=== PATIENT | male | born 1950 | race Caucasian/White ===

== ENCOUNTER 2022-01-05 14:37 | Inpatient (IN) | payer OTHER ==
[~2022-01-05] VITALS: Ht 188 cm; Wt 65.8 kg
--- NOTE | 2022-01-05 14:40 | NUR ---
Pt brought by , A&Ox4, pt presents to ER with c/o chest tightness for few days, also c/o generalized weakness, skin pink and warm, cap refill <3, VSS, respirations even and unlabored, will cont to monitor.
[2022-01-05 14:56] VITALS: BP_SYST 119
--- NOTE | 2022-01-05 15:00 | NUR ---
Dr Heck evaluating patient in the triage room
[2022-01-05 15:54] LABS: BASOPHILS % (AUTO) 0.1 % (0.0-2.0); EOSINOPHILS % (AUTO) 0.6 % (0.0-4.0); HEMATOCRIT 34.8 % (36-54); HEMOGLOBIN 12.1 g/dL (14.0-18.0); MEAN CORPUSCULAR HEMOGLOBIN 31 pg (27-31); MEAN CORPUSCULAR HGB CONC 35 % (32-36); MEAN CORPUSCULAR VOLUME 89 fL (79.0-98.0); MONOCYTES # (AUTO) 0.5 K/uL (0.0-1.0); NEUTROPHILS # (AUTO) 4.2 K/uL (1.8-7.7); NEUTROPHILS % (AUTO) 72.3 % (40.0-70.0); PLATELET COUNT (AUTO) 184 K/uL (130-430); RED BLOOD CELL COUNT(AUTO) 3.93 MIL/uL (4.2-6.2); RED CELL DISTRIBUTION WIDTH 13.7 % (9.0-15.0); WHITE BLOOD COUNT (AUTO) 5.8 K/uL (4.8-10.8)
[2022-01-05 16:47] LABS: THYROID STIMULATING HORMONE 1.07 uIu/mL (0.36-3.74)
[2022-01-05 16:49] LABS: ALBUMIN 3.8 g/dL (3.4-4.8); ASPARTATE AMINOTRANSFERASE 20 U/L (10-37); CALCIUM 9.9 mg/dL (8.4-11.0); CREATININE 0.99 mg/dL (0.55-1.30); GLUCOSE 101 mg/dL (70-99); UREA NITROGEN, BLOOD 23 mg/dL (8-21)
[2022-01-05 17:11] LABS: ALANINE AMINOTRANSFERASE 6 U/L (12-78)
[2022-01-05 17:18] LABS: GFR AFRICAN AMERICAN 96 mL/min (>90)
--- NOTE | 2022-01-05 17:50 | NUR ---
Placed in room 06 . Placed on quality assurance monitor final, blood pressure machine and pulse oximeter. To gown for exam. Side rails up.
--- NOTE | 2022-01-05 17:55 | NUR ---
# 20 gauge angiocath placed to LAC. Use of asceptic technique. Opsite placed over site. Blood return noted. Blood for lab drawn from site. Flushed with 10 cc of normal saline. No evidence of infiltration noted. Patient tolerated well.
[2022-01-05] MEDS ORDERED: NACL 0.9% 1,000 ML IV ONE (18:00)
[2022-01-05 18:07] LABS: POTASSIUM 4.1 mmol/L (3.5-5.1)
[2022-01-05 18:08] LABS: ANION GAP 9 (5-15); CHLORIDE 103 mmol/L (98-107)
[2022-01-05 18:09] LABS: SODIUM SERUM 136 mmol/L (136-145)
--- NOTE | 2022-01-05 18:41 | NUR ---
COVID SWAB DONE AND SENT TO LAB
--- NOTE | 2022-01-05 18:53 | NUR ---
Admit bed requested Patient will be admitted to care of . Admitted to TELE unit. Diagnosis CAD, DIZZINESS Inpatient (Yes or No) YES Observation (Yes or No) NO Orientation concerns or request close to nursing station (Yes or No) NO Covid Status PENDING On vent or bipap NO Isolation requirements NO Needs a sitter NO From Home (Yes or if No enter name of facility) HOME Requires Dialysis (Yes or No) NO Med Rec Completed (Yes of No) YES
--- NOTE | 2022-01-05 19:58 | NUR ---
patient is at CT Addendum: 01/05/22 at 1958 by [email or web address] wrong note
[2022-01-05 20:10] LABS: BILIRUBIN,URINE NEGATIVE (NEGATIVE); BLOOD, URINE NEGATIVE (NEGATIVE); CLARITY/URINE CLEAR (CLEAR); COLOR,URINE YELLOW (YELLOW); GLUCOSE,URINE NEGATIVE (NEGATIVE); KETONES,URINE TRACE (NEGATIVE); LEUKOCYTE ESTERASE ,URINE NEGATIVE (NEGATIVE); NITRITE, URINE NEGATIVE (NEGATIVE); PROTEIN URINE NEGATIVE (NEGATIVE)
--- NOTE | 2022-01-05 20:30 | NUR ---
Patient transferred to TELE 110A. Report given to Florentino CORBETT
[2022-01-05 20:55] VITALS: BP_SYST 139
[2022-01-05] MEDS ORDERED: CARB1TAB10 PO (22:11)
[2022-01-05] MEDS ORDERED: CARB-15 PO (23:33)
[2022-01-05] MEDS: CARBIDOPA/LEVODOPA 25/250 MG TABLET PO SCH (23:51)
[2022-01-05] MEDS: TEMAZEPAM 7.5 MG CAPSULE PO PRN (23:51)
[2022-01-06 01:05] VITALS: BP_SYST 91
--- NOTE | 2022-01-06 01:15 | NUR ---
Patient education to leave heart monitor in place, 3rd teaching. Florentino East RN
--- NOTE | 2022-01-06 01:56 | NUR ---
Patient education to stay in bed, says he will not "go on any more adventures." Education regarding calling with call light and bed alarm. Florentino East RN
--- NOTE | 2022-01-06 05:21 | NUR ---
Consultation Paged Reason for Consultation: ACS. Dizziness Was consult called: Y Person who was notified: Kenna Consulting Physician: Dr. Doss Ordering Physician: Dr. Kwong
[2022-01-06 08:00] VITALS: BP_SYST 119
[2022-01-06 08:23] LABS: BASOPHILS % (AUTO) 0.2 % (0.0-2.0); EOSINOPHILS # (AUTO) 0.1 K/uL (0.0-0.4); EOSINOPHILS % (AUTO) 1.4 % (0.0-4.0); HEMATOCRIT 35.5 % (36-54); HEMOGLOBIN 12.3 g/dL (14.0-18.0); LYMPHOCYTES # (AUTO) 1.2 K/uL (1.0-5.5); LYMPHOCYTES % (AUTO) 27.1 % (20.5-51.5); MEAN CORPUSCULAR HEMOGLOBIN 31 pg (27-31); MEAN CORPUSCULAR HGB CONC 35 % (32-36); MEAN CORPUSCULAR VOLUME 89 fL (79.0-98.0); MONOCYTES # (AUTO) 0.5 K/uL (0.0-1.0); MONOCYTES % (AUTO) 11.2 % (1.7-9.3); NEUTROPHILS # (AUTO) 2.7 K/uL (1.8-7.7); NEUTROPHILS % (AUTO) 60.1 % (40.0-70.0); PLATELET COUNT (AUTO) 169 K/uL (130-430); RED CELL DISTRIBUTION WIDTH 13.7 % (9.0-15.0); WHITE BLOOD COUNT (AUTO) 4.5 K/uL (4.8-10.8)
[2022-01-06 08:25] LABS: CALCIUM 9.8 mg/dL (8.4-11.0); CREATININE 0.86 mg/dL (0.55-1.30); POTASSIUM 3.7 mmol/L (3.5-5.1)
[2022-01-06 08:35] LABS: ALBUMIN 3.6 g/dL (3.4-4.8); TOTAL BILIRUBIN 1.2 mg/dL (0.0-1.0)
[2022-01-06] MEDS: CARBIDOPA/LEVODOPA 25/250 MG TABLET PO SCH ×3 (09:12→21:35)
[2022-01-06] MEDS ORDERED: BET(AF)80 PO (11:43)
[2022-01-06 12:00] VITALS: BP_SYST 98
[2022-01-06 16:00] VITALS: BP_SYST 123
--- NOTE | 2022-01-06 16:00 | NUR ---
pt A/Ox3,denies pain or discomfort,ambulatory well by self,occasional shaking in body BP 154/81 in right arm,BP 123/76 in left arm,O2 sat 99% on room air,respirates even and unlabored,pt expressed he wants to go home today, called and notified order received to d/c pt if ok with statement distribution clerk,statement distribution clerk called and left message with regine in the office.explained pt awaiting statement distribution clerk to clear for discharge.
[2022-01-06 20:25] VITALS: BP_SYST 150
[2022-01-06] MEDS: TEMAZEPAM 7.5 MG CAPSULE PO PRN (21:58)
[2022-01-07 01:13] VITALS: BP_SYST 118
[2022-01-07 08:00] VITALS: BP_SYST 129
[2022-01-07] MEDS: CARBIDOPA/LEVODOPA 25/250 MG TABLET PO SCH ×3 (08:38→21:40)
--- NOTE | 2022-01-07 09:13 | NUR ---
CONSULTATION PAGED/CALLED Reason for Consultation: [] PARKINSON'S Person Who was Notified: [] DR BOOKER Consulting Physician: [] DR Amado BOOKER Marketing Education Teacher Specialty: [] NEUROLOGIST Ordering Physician: [] DR TUTTLE
--- NOTE | 2022-01-07 09:23 | NUR ---
MAXILLOFACIAL SURGEON DR SHARMA ORDERED DEFIBRILLATOR CHECK. [employer] WAS CALLED ([phone]). SPOKE TO GARRETT WHO WILL CONTACT THE REP FOR THE AREA. (CHUCKY)
--- NOTE | 2022-01-07 11:46 | NUR ---
CONSULTATION PAGED/CALLED Reason for Consultation: []Parkinson's Person Who was Notified: []Amie Consulting Physician: [] Dr. Ricci Final Cigar And Box Examiner Specialty: []Neuro Ordering Physician: []Dr. Kwong
[2022-01-07 12:00] VITALS: BP_SYST 130
[2022-01-07] MEDS ORDERED: DIPHENHYDRAMINE HCL 12.5 MG/5 ML UDC PO PRN (13:00)
--- NOTE | 2022-01-07 13:02 | NUR ---
LATE ENTRY REP JEANNE FROM [employer] CAME TO CHECK THE DEFIBRILATOR.
--- NOTE | 2022-01-07 13:03 | NUR ---
PRIMARY MD, DR MCCONNELL CAME TO SEE THE PT. ATTENDING MD WILL BE CHANGED TO DR Mesfin MCCONNELL, DR MOREL COVERING.
--- NOTE | 2022-01-07 14:13 | NUR ---
Discharge Planning: [facility] faxed pt referral to [facility] [phone]. Addendum: 01/07/22 at 1455 by Lucina Denson RN Per Erica at [facility] pt declined, no criteria. Spoke with charge nurse, pt is ambulating on his own steady. Pt gets more confused at night.
--- NOTE | 2022-01-07 15:38 | NUR ---
DISCHARGE PLANNING Called & spoke with Salima Gomez, ph [phone], informed [facility] declined pt due to not meeting criteria, pt ambulatory. Explained Medicare IM Letter & verbalized understanding. Informed would leave copy at bedside. Gave information regarding different placements for pt, [facility], [facility], caregivers at home. Informed of Senior placement agencies that assist pt's/family with further resources. [facility] cannot afford, ok to leave information at bedside. Left copy of Medicare IM letter, pamphlets for Senior placements, & caregivers. Updated CM Director & Teller. [facility] is coming in to speak with Neurologist today.
[2022-01-07 16:00] VITALS: BP_SYST 120
--- NOTE | 2022-01-07 19:34 | NUR ---
[employer] PATIENT M1 ARMOR CREWMAN WILL PAGE PLASTIC AND RECONSTRUCTIVE SURGEON CLINICIAN TO INTERROGATE IMPLANTABLE CARDIOVERTER DEFIBRILLATOR. PATRICA BANEGAS RN
[2022-01-07 20:05] VITALS: BP_SYST 144
--- NOTE | 2022-01-07 20:10 | NUR ---
[employer] INSPECTOR CANNED FOOD RECONDITIONING CHUCKY RETURNED CALL AND SAYS DEVICE WAS ALREADY INTERROGATED TODAY. PATRICA BANEGAS RN
[2022-01-07] MEDS: QUEtiapine FUMARATE 25 MG TABLET PO SCH (21:40)
[2022-01-08] MEDS: CARBIDOPA/LEVODOPA 25/250 MG TABLET PO SCH ×4 (08:47→20:48)
[2022-01-08] MEDS: QUEtiapine FUMARATE 25 MG TABLET PO SCH ×2 (08:47→20:48)
[2022-01-08 12:00] VITALS: BP_SYST 110
[2022-01-08 16:00] VITALS: BP_SYST 100
--- NOTE | 2022-01-08 16:08 | NUR ---
CM: discussed dcp to snf/memory care unit with spouse. She agrees with the snf transfer, she will call back with her preferred snf in [facility]. Stated [facility] Addendum: 01/08/22 at 1646 by Milind Lozada RN Spouse call back with preferred snf: #[facility] tel # [phone] [place] [address], [facility], [facility], [facility]3 [facility], [facility].
--- NOTE | 2022-01-08 17:05 | NUR ---
patient discharged to neuro restorative care at this time via ambulance in the company of two attendants. instructions given. patient verbalized understanding. Addendum: 01/08/22 at 1748 by Ruthann Argueta RN error; charted on wrong patient.
[2022-01-08 19:30] VITALS: BP_SYST 99
[2022-01-09 00:02] VITALS: BP_SYST 146
[2022-01-09 05:35] VITALS: BP_SYST 153
--- NOTE | 2022-01-09 06:12 | NUR ---
SLEPT MOST OF NIGHT IS RECEPTIVE AND COOPERATIVE.TOLD HIM HIS DAUGHTER DASHA MONTERO APPEARS HAPPY
--- NOTE | 2022-01-09 07:15 | NUR ---
OPEN NOTE Received patient resting. Patient does not seem to be in any pain or distress. Vital signs taken and noted to be within normal limits. No noted IV site in place at this time. Will try to gain IV access once possible. Patient is on room air with 100% saturation levels. Patient bed is in lowest position with call light within reach. All needs met at this time and will continue to monitor.
[2022-01-09 07:23] VITALS: BP_SYST 117
[2022-01-09] MEDS: QUEtiapine FUMARATE 25 MG TABLET PO SCH (08:25)
[2022-01-09] MEDS: CARBIDOPA/LEVODOPA 25/250 MG TABLET PO SCH ×3 (08:25→16:36)
[2022-01-09 12:00] VITALS: BP_SYST 83
--- NOTE | 2022-01-09 12:00 | NUR ---
PATIENT ROUNDS Patient resting in bed. No pain, no distress, no shortness of breath noted. Patient awake and alert. No IV site needed at this moment. MD Lizama saw patient at bedside and stated that he will be discussing care with patient neurologist. All needs met at this time, bed in lowest position, call light within reach. Safety measures in place. Will continue to monitor.
--- NOTE | 2022-01-09 13:38 | NUR ---
CM: Additional referral faxed to [facility] and was accepted to room 7, tel # [phone], fax # [phone] . Salima/spouse agreed with the f transfer to [facility]. Dr Lizama made aware. No dc order yet, per dr. Lizama, he spoke with Salima and dr. Becker wants to monitor pt with new dosage of Seroquel therapeutic affects. CM to reassess with dr. Lizama for possible dc tomorrow. Addendum: 01/09/22 at 1347 by Milind Lozada RN Transportation: please call [facility] # [phone]. The facility will accommodate/arrange the ambulance picking machine operator. Addendum: 01/09/22 at 1610 by Milind Lozada RN Requested [facility] to arrange the picking machine operator this pm. Dr Becker came in to reassess and cleared for dc to [facility]. The md also spoke with Salima and agreed for the transfer today. Dr Lizama made aware. He ok to dc pt to [facility] under dr. Deshpande Gen to f/u and [facility]. The pt is to continue same medications and treatments. -- CHELLE reno aware. Addendum: 01/09/22 at 1641 by Milind Lozada RN Per [facility]: arranged [place] [facility] ETA 7-8 pm picking machine operator. -- CHELLE Valdez aware, dc package placed in [facility] unit.
[2022-01-09 16:00] VITALS: BP_SYST 109
--- NOTE | 2022-01-09 16:00 | NUR ---
PATIENT ROUNDS Patient resting in bed. No pain, no distress, no shortness of breath noted. Patient awake and alert. No IV site needed at this moment. All needs met at this time, bed in lowest position, call light within reach. Safety measures in place. Will continue to monitor.
[2022-01-09 16:12] VITALS: BP_SYST 109
--- NOTE | 2022-01-09 16:47 | NUR ---
Report to SNF Placed a call to [facility] and spoke with Felix. Report given to Felix regarding patient's condition. Patient to be Picked up via [facility] between 7-8pm and to go to room 56 under Md Kwong's care. Will report to shift supervisor rn nurse.
--- NOTE | 2022-01-09 18:26 | NUR ---
CLOSE NOTE Patient is laying in bed resting. Patient does not have pain, distress or shortness of breath at this time. Skin is intact and patient is independent with feedings and bathroom privileges. Patient is on room air with 100% saturation levels. Patient to be transfered to [facility] and report was already given to facility. Patient's bed is in lowest position with call light within reach. All needs met at this time and will endorse to public employment mediator nurse.
--- NOTE | 2022-01-09 19:53 | NUR ---
D/C Patient Patient given medication reconciliation form and D/C instructions. Exit Care provided. Patient verbalized understanding. MD discussed with patient the results and treatment provided. Ambulatory with steady gait for discharge to [facility]. Patient in stable condition, ID band removed. Patient educated on pain management. All belongings sent with patient. pt has a good spririt and ready to move on to another facility.
--- NOTE | 2022-01-10 09:40 | NUR ---
Dispo code 03
== END 2022-01-09 19:35 | DRG 313 ==
LOC: SED 14:37 → STU 18:08 → SMU 01-08 18:58
PROVIDERS: ADMIT Internal Medicine; ATTEND Family Medicine
DX: R07.89 Other chest pain (principal); R53.1 Weakness; G20 Parkinson's disease; Z20.822 Contact with and (suspected) exposure to COVID-19; F02.80 Dementia in other diseases classified elsewhere, unspecified severity, without behavioral disturbance, psychotic disturbance, mood disturbance, and anxiety; G30.9 Alzheimer's disease, unspecified; Z95.810 Presence of automatic (implantable) cardiac defibrillator; Z88.0 Allergy status to penicillin; Z86.79 Personal history of other diseases of the circulatory system
CPT/HCPCS: 36415; 70450-TC; 71045; 76376; 80053; 81003; 82550; 83880; 84439; 84443; 84484; 85025; 93005; 93306; 96360; 99285; G0378